=== PATIENT | male | born 1955 | race Caucasian/White ===

== ENCOUNTER 2019-03-20 09:06 | Emergency (ER) | payer BC, SELFPAY ==
[2019-03-20 09:13] VITALS: BP 166/85; PULSE 75; RESP 16; TEMP 36.9; O2SAT 98; BMI 25.0
--- NOTE | 2019-03-20 09:25 | ED_ITS ---
HPI - Nausea/Vomiting/Diarrhea General Chief complaint: Nausea/Vomiting/Diarrhea Stated complaint: Throwing up, not hungry Time Seen by Provider: 03/20/19 09:24 Source: patient Mode of arrival: Ambulatory Limitations: no limitations History of Present Illness HPI Narrative: 63-year-old male with a history of gastric ulcer. This is diagnosed 2 years ago by an endoscopy. Has been on Nexium occasionally since then. He states that for the past couple days he has had nausea and vomiting similar to his prior history of a gastric ulcer. He was seen in the walk-in clinic and was given Zofran and a PPI. He has only been on this for a day. Returns today for continued symptoms. Related Data Home Medications Medication Instructions Recorded Confirmed finasteride 5 mg tablet 5 mg PO DAILY 03/19/19 03/20/19 tamsulosin 0.4 mg capsule 0.4 mg PO BEDTIME 03/19/19 03/20/19 Previous Rx's Medication Instructions Recorded esomeprazole magnesium 40 mg 40 mg PO BID 30 Days #120 cap 03/19/19 capsule,delayed release ondansetron 4 mg disintegrating 4 mg PO BID PRN #14 tab 03/19/19 tablet sucralfate [Carafate] 10 ml PO QID #420 ml 03/20/19 Allergies Allergy/AdvReac Type Severity Reaction Status Date / Time banana Allergy Intermediate stomach Verified 03/19/19 08:47 cramps, rash Review of Systems Constitutional Constitutional: Denies fever(s) ENT Ears, Nose, Mouth, and Throat: Denies vertigo Cardiovascular Cardiovascular: Denies chest pain and Denies dyspnea Respiratory Respiratory: Denies dyspnea Gastrointestinal Gastrointestinal: Reports abdominal pain (Lower abdominal pain yesterday none today), Reports nausea and Reports vomiting Genitourinary Comments: Last bowel movement 2 days ago Musculoskeletal Musculoskeletal: Denies myalgias and Denies arthralgias Integumentary/Breasts Skin/Breast: Denies rash Neurologic Neurologic: Denies behavioral changes and Denies vertigo Psychiatric Psychiatric: Denies behavioral changes Hematologic/Lymphatic Hematologic/Lymphatic: Denies easy bleeding and Denies easy bruising Patient History Medical History (Updated 03/20/19 @ 11:35 by Manish Thornton DO) Gastric ulcer (Acute) Surgical History No pertinent past surgical history (Acute) Social History Smoking Status: Never smoker Substance Use Type: does not use Exam Initial Vital Signs Initial Vital Signs: Vital Signs Temperature 98.5 F 03/20/19 09:13 Pulse Rate 75 03/20/19 09:13 Respiratory Rate 16 03/20/19 09:13 Blood Pressure 166/85 H 03/20/19 09:13 Pulse Oximetry 98 03/20/19 09:13 Const General: cooperative, comfortable and well developed Orientation: alert and oriented x3 HENMT Head: normal to inspection and atraumatic Resp Effort & Inspection: normal respiratory effort Auscultation: clear to auscultation bilaterally Cardio Rate: regular rate Rhythm: regular rhythm GI Inspection: non-distended Palpation: soft, No firm and No tender Skin Lesions: no lesions Rashes: no rashes Neuro General: alert, awake and oriented x3 Cognition: normal cognition Speech: speech normal Gait: normal gait Extrem General: normal to inspection and capillary refill normal Psych Appearance: grossly normal and well kempt Course Orders Ordered: ED Orders 03/20/19 09:27 XR chest 1V Stat 03/20/19 09:30 Complete Blood Count AUTO DIFF Stat Comprehensive Metabolic Panel Stat Lipase Stat Discontinued Medications Sodium Chloride (Normal Saline 0.9%) 1,000 mls @ 1,000 mls/hr IV BOLUS ONE Stop: 03/20/19 10:25 Last Admin: 03/20/19 09:36 Dose: 1,000 mls/hr Documented by: KIN Metoclopramide HCl (Reglan) 10 mg IV NOW ONE Stop: 03/20/19 09:27 Last Admin: 03/20/19 09:35 Dose: 10 mg Documented by: KIN Ondansetron HCl (Zofran) 4 mg IV NOW ONE Stop: 03/20/19 10:05 Last Admin: 03/20/19 10:43 Dose: 4 mg Documented by: KIN Pantoprazole Sodium (Protonix) 40 mg IV NOW ONE Stop: 03/20/19 09:27 Last Admin: 03/20/19 09:38 Dose: 40 mg Documented by: SCANAPAlee Vital Signs Vital signs: Vital Signs - 8 hr 03/20/19 09:13 03/20/19 10:07 03/20/19 11:07 Temperature 98.5 F Pulse Rate 75 64 61 Respiratory Rate 16 17 Blood Pressure 166/85 H Blood Pressure [Left Arm] 144/94 H 136/70 Pulse Oximetry 98 98 99 MDM - Nausea/Vomiting/Diarrhea Lab Data Attestation: I reviewed the patient's lab results. Result diagrams: 03/20/19 09:30 03/20/19 09:30 Labs: Lab Results 03/20/19 03/20/19 Range/Units 09:30 09:30 WBC 13.8 H (4.5-11.0) X10^3/uL RBC 4.98 (4.5-5.9) X10^6/uL Hgb 16.0 (13.5-17.5) g/dL Hct 46.5 (41-53) % MCV 93.5 (80-100) fL MCH 32.1 (26-34) PG MCHC 34.4 (30-36) % RDW 13.4 (11.6-14.8) % Plt Count 240 (150-400) X10^3/uL Neut % (Auto) 89.8 H (50-75) % Lymph % (Auto) 5.0 L (25-40) % [place] % (Auto) 5.0 (3-14) % Eos % (Auto) 0.1 L (2-4) % Baso % (Auto) 0.1 (0-2) % Neut # (Auto) 59194 H (3280-3670) /uL Lymph # (Auto) 700 L (4996-0677) /uL [place] # (Auto) 700 (0-900) /uL Eos # (Auto) 0 (0-450) /uL Baso # (Auto) 0 (0-100) /uL Sodium 138 (137-145) mmol/L Potassium 4.1 (3.4-5.1) mmol/L Chloride 99 (98-107) mmol/L Carbon Dioxide 28 (22-32) mmol/L BUN 25 H (9-20) mg/dL Creatinine 1.00 (0.66-1.25) mg/dL Estimated GFR > 60.0 (>60) mL/min BUN/Creatinine Ratio 25.0 H (6-22) Glucose 148 H (80-110) mg/dL Calcium 9.3 (8.4-10.2) mg/dL Total Bilirubin 1.0 (0.2-1.3) mg/dL AST 23 (17-59) IU/L ALT 18 (<50) IU/L Alkaline Phosphatase 59 (38-126) U/L Total Protein 7.4 (6.3-8.2) g/dL Albumin 4.4 (3.5-5.0) g/dL Globulin 3.0 (1.7-4.1) g/dL Albumin/Globulin Ratio 1.5 (1.0-2.8) Lipase 72 (23-300) U/L Imaging Data Chest x-ray: Radiologist's impression: [address] [address] XRay Report Signed Patient: Shayy Zimmerman [facility]#: [id number] : 5Acct:[id number] Age/Sex: 63 / MDate of Service: 03/20/19 Loc: ED Accession Number: [id number] Procedure: XR chest 1V Ordering Provider: Manish Thornton D.O. PROCEDURE: XR CHEST 1V INDICATIONS: History of gastric ulcer eval for free air TECHNIQUE: One view of the chest was acquired. COMPARISON: None. FINDINGS: Surgical changes and devices: None. Lungs and pleura: Lungs are clear. No pleural effusions or pneumothorax. Mediastinum: Mediastinal contours appear normal. Heart size is normal. Bones and chest wall: No suspicious bony lesions. Overlying soft tissues jessica ear unremarkable. No pneumoperitoneum is evident under the hemidiaphragms. IMPRESSION: 1. No pneumoperitoneum is evident. 2. No acute cardiopulmonary process is evident. Dictated by: Rashaun Portillo M.D. on 03/20/2019 at 8:55 Approved by: Rashaun Portillo M.D. on 03/20/2019 at 8:56 MDM Narrative Medical decision making narrative: Patient is benign abdominal exam. His labs are unremarkable. Does have a slight leukocytosis however this could be secondary to demargination from vomiting for the past couple days. I feel that we can hold on a CT scan for now. He was able to tolerate oral intake. He does have a PPI or any prescribed to him and Zofran. I will prescribe Carafate. We did discuss the use of all these medications together. He is from [place]. When he returns home he is going to contact his primary provider by getting in to see a general surgeon for an upper endoscopy. Patient was given return precautions. He expressed understanding and agreement plan. Discharge Plan Departure Patient Disposition: Home Clinical Impression: Nausea and vomiting Qualifiers: Vomiting type: unspecified Vomiting Intractability: unspecified Qualified Code(s): R11.2 - Nausea with vomiting, unspecified Instructions: DI for Gastroesophageal Reflux Disease (GERD) Activity Restrictions/Additional Instructions: Recommend you continue all other medications as directed. Take the Carafate as directed as well. When you return home contact your primary provider about a referral to see General surgery for an upper endoscopy. Prescriptions: New sucralfate [Carafate] 100 mg/mL suspension 10 ml PO QID Qty: 420 RF: 0 No Action tamsulosin 0.4 mg capsule 0.4 mg PO BEDTIME RF: 0 finasteride 5 mg tablet 5 mg PO DAILY RF: 0 esomeprazole magnesium [Nexium] 40 mg capsule,delayed release(DR/EC) 40 mg PO BID 30 Days Qty: 120 RF: 0 ondansetron 4 mg tablet,disintegrating 4 mg PO BID PRN (Reason: nausea and vomiting) Qty: 14 RF: 0
[2019-03-20] MEDS: METOCLOPRAMIDE 10 MG/2 ML INJ IV (09:35)
[2019-03-20] MEDS: SODIUM CHLORIDE 0.9% 1,000 ML 1000 ML IV (09:36)
[2019-03-20] MEDS: PANTOPRAZOLE 40 MG VIAL IV (09:38)
[2019-03-20 09:41] LABS: Add Manual Diff / Slide Review NO; Basophils Absolute Auto 0 /uL (0-100); Basophils Percent Auto 0.1 % (0-2); Eosinophils Absolute Auto 0 /uL (0-450); Eosinophils Percent Auto 0.1 % (2-4); Hematocrit 46.5 % (41-53); Lymphocytes Absolute Auto 700 /uL (1100-4500); Mean Corpuscular HGB Conc 34.4 % (30-36); Mean Corpuscular Hemoglobin 32.1 PG (26-34); Mean Corpuscular Volume 93.5 fL (80-100); Monocytes Absolute Auto 700 /uL (0-900); Neutrophils Absolute Auto 12400 /uL (1500-7000); Neutrophils Percent Auto 89.8 % (50-75); Platelet Count 240 X10^3/uL (150-400); Red Blood Cell Count 4.98 X10^6/uL (4.5-5.9); Red Cell Distribution Width 13.4 % (11.6-14.8); White Blood Cell Count 13.8 X10^3/uL (4.5-11.0)
[2019-03-20 09:54] LABS: Alanine Aminotransferase 18 IU/L (<50); Albumin 4.4 g/dL (3.5-5.0); Albumin Globulin Ratio 1.5 (1.0-2.8); Alkaline Phosphatase 59 U/L (38-126); Aspartate Aminotransferase 23 IU/L (17-59); Blood Urea Nitrogen 25 mg/dL (9-20); Calcium 9.3 mg/dL (8.4-10.2); Carbon Dioxide 28 mmol/L (22-32); Chloride 99 mmol/L (98-107); Estimated Glomerular Filt Rate > 60.0 mL/min (>60); Glucose 148 mg/dL (80-110); HEMOLYSIS < 15 (0-50); Lipase 72 U/L (23-300); Potassium 4.1 mmol/L (3.4-5.1); Sodium 138 mmol/L (137-145); Total Protein 7.4 g/dL (6.3-8.2)
[2019-03-20 10:07] VITALS: BP 144/94; PULSE 64; O2SAT 98
[2019-03-20] MEDS: ONDANSETRON 4 MG/2 ML INJ IV (10:43)
[2019-03-20 11:07] VITALS: BP 136/70; PULSE 61; RESP 17; O2SAT 99
--- NOTE | 2019-03-20 11:40 | PC.NURSE ---
pt reports worsens with laying flat.
== END 2019-03-20 11:43 | disposition home or self-care (01) ==
PROVIDERS: Emergency Provider Emergency Medicine
DX: R11.2 Nausea with vomiting, unspecified (principal); R10.30 Lower abdominal pain, unspecified; Z87.11 Personal history of peptic ulcer disease
CPT/HCPCS: 36415; 71045; 80053; 83690; 85025; 96361; 96374; 96375; 99283; 99284; C9113; J2405; J2765